=== PATIENT | male | born 1985 | race Hispanic/Latino ===

== ENCOUNTER 2018-10-06 12:52 | Emergency (ER) | payer OTHER ==
[2018-10-06] MEDS ORDERED: Triple Antibiotic Oint 1 GM Packet ONE (15:49)
== END 2018-10-06 16:38 | disposition home or self-care (01) ==
LOC: MADERS 12:52
DX: Z77.098 Contact with and (suspected) exposure to other hazardous, chiefly nonmedicinal, chemicals (principal); F17.210 Nicotine dependence, cigarettes, uncomplicated
CPT/HCPCS: 99283